=== PATIENT | male | born 1975 | race Caucasian/White ===

== ENCOUNTER 2017-07-05 21:39 | Emergency (ER) | payer OTHER ==
[~2017-07-05] VITALS: Ht 177.8 cm; Wt 81.7 kg
[~2017-07-05 21:39] MED LIST: ACET325 PO; CYCL10 PO; HYDR1TAB94 PO; IBUP800 PO; NAPR500EC PO; Norco 5-325 Ta1 EACH PO; OTC PAIN MEDS; PENVK500 PO; Percocet 5-3251 EACH PO; Robaxin-750750 MG PO; Ultram50 MG PO
[2017-07-05] MEDS ORDERED: CYCL10 PO (21:45)
[2017-07-05] MEDS ORDERED: LEVO750 PO ×2 (22:56→23:05)
[2017-07-05] MEDS ORDERED: Guaifenesin-Co118 ML PO ×2 (22:56→23:05)
[2018-04-04] MEDS ORDERED: Norco 5-325 Ta1 EACH PO (16:42)
[2018-04-04] MEDS ORDERED: Cleocin HCl300 MG PO (16:42)
== END 2017-07-05 23:17 | disposition home or self-care (01) ==
LOC: ER 21:39
DX: J18.9 Pneumonia, unspecified organism (principal); Z87.891 Personal history of nicotine dependence
CPT/HCPCS: 71046; 99283

== ENCOUNTER 2017-11-07 16:44 | Emergency (ER) | payer OTHER ==
[~2017-11-07] VITALS: Ht 177.8 cm; Wt 77.1 kg
[~2017-11-07 16:44] MED LIST changes: +Guaifenesin-Co118 ML PO; +LEVO750 PO
== END 2017-11-07 17:55 | disposition home or self-care (01) ==
LOC: ER 16:44
DX: T16.2XXA Foreign body in left ear, initial encounter (principal); Z79.899 Other long term (current) drug therapy; Z87.891 Personal history of nicotine dependence
CPT/HCPCS: 99282

== ENCOUNTER 2018-01-05 16:28 | Emergency (ER) | payer OTHER ==
[~2018-01-05] VITALS: Ht 177.8 cm; Wt 77.1 kg
[2018-01-05] MEDS ORDERED: ACET325 PO (17:00)
[2018-01-05] MEDS ORDERED: IBUP800 PO (17:01)
[2018-01-05] MEDS ORDERED: DICL75ER PO (17:37)
== END 2018-01-05 17:45 | disposition home or self-care (01) ==
LOC: ER 16:28
DX: G89.29 Other chronic pain (principal); M25.562 Pain in left knee; Z87.891 Personal history of nicotine dependence
CPT/HCPCS: 96372; 99282; J1885

== ENCOUNTER 2018-06-22 11:04 | Emergency (ER) | payer OTHER ==
[~2018-06-22] VITALS: Ht 177.8 cm; Wt 81.7 kg
[~2018-06-22 11:04] MED LIST changes: +Cleocin HCl300 MG PO; +DICL75ER PO
[2018-06-22] MEDS ORDERED: Prednisone20 MG PO (11:31)
[2018-06-22] MEDS ORDERED: Norco 5-325 Ta1 EACH PO (11:31)
[2018-06-22] MEDS ORDERED: Cleocin HCl300 MG PO (11:31)
== END 2018-06-22 11:40 | disposition home or self-care (01) ==
LOC: ER 11:04
DX: T81.40XA Infection following a procedure, unspecified, initial encounter (principal); K04.7 Periapical abscess without sinus
CPT/HCPCS: 99282

== ENCOUNTER 2018-12-14 18:36 | Emergency (ER) | payer OTHER ==
[~2018-12-14] VITALS: Ht 170.2 cm; Wt 77.1 kg
[~2018-12-14 18:36] MED LIST changes: +Prednisone20 MG PO
[2018-12-14] MEDS ORDERED: Neurontin 100100 MG (18:44)
[2018-12-14] MEDS ORDERED: CYCL10 PO (18:44)
[2018-12-14] MEDS ORDERED: METPRE4DP PO (19:00)
== END 2018-12-14 19:20 | disposition home or self-care (01) ==
LOC: ER 18:36
DX: M54.5 Low back pain (principal); Z79.52 Long term (current) use of systemic steroids; Z87.891 Personal history of nicotine dependence
CPT/HCPCS: 96372; 99283-25; J1885; J7512

== ENCOUNTER 2019-07-02 17:12 | Emergency (ER) | payer OTHER ==
[~2019-07-02] VITALS: Ht 177.8 cm; Wt 82.5 kg
[~2019-07-02 17:12] MED LIST changes: +METPRE4DP PO; +Neurontin 100100 MG
[2019-07-02 17:44] LABS: BASOPHILS ABSOLUTE AUTO 0.05 K/mm3 (0.00-0.23); BASOPHILS PERCENT AUTO 1 % (0-2); EOSINOPHILS ABSOLUTE AUTO 0.11 K/mm3 (0.00-0.68); EOSINOPHILS PERCENT AUTO 2 % (0-6); Hematocrit 42.2 % (37.0-53.0); Hemoglobin 13.4 g/dL (13.5-17.5); IMMATURE GRAN ABSOLUTE AUTO 0.02 K/mm3 (0.00-0.10); IMMATURE GRAN PERCENT AUTO 0 % (0-1); LYMPHOCYTES ABSOLUTE AUTO 1.89 K/mm3 (0.84-5.20); LYMPHOCYTES PERCENT AUTO 28 % (21-46); MONOCYTES ABSOLUTE AUTO 0.37 K/mm3 (0.16-1.47); MONOCYTES PERCENT AUTO 6 % (4-13); Mean Corpuscular HGB 25.1 pg (26.0-34.0); Mean Corpuscular HGB Conc 31.8 g/dL (31.5-36.5); Mean Corpuscular Volume 79 fL (80-100); Mean Platelet Volume 10.2 fL (9.1-12.4); NEUTROPHILS ABSOLUTE AUTO 4.33 K/mm3 (1.96-9.15); NEUTROPHILS PERCENT AUTO 64 % (41-73); Platelet Count 211 K/mm3 (150-400); RDW Coefficient Variation 14.6 % (11.7-14.2); RDW Standard Deviation 41.8 fL (35.1-46.3); Red Blood Cell Count 5.34 M/mm3 (4.30-5.90); White Blood Cell Count 6.77 K/mm3 (4.00-11.30)
[2019-07-02 18:01] LABS: Albumin, Blood 3.8 g/dL (3.4-5.0); Anion Gap 3 mmol/L (6-16); Blood Urea Nitrogen 13 mg/dL (8-24); CO2, Blood 28 mmol/L (21-32); Calcium, Blood 8.9 mg/dL (8.5-10.1); Chloride, Blood 107 mmol/L (98-108); Glucose, Blood 98 mg/dL (70-99); Potassium, Blood 3.8 mmol/L (3.5-5.5); Sodium, Blood 138 mmol/L (136-145)
[2019-07-02 18:06] LABS: Alanine Aminotransfer (ALT/SGP 31 U/L (12-78); Albumin/Globulin Ratio 1.1 (0.8-1.8); Alk Phos 94 U/L (50-136); Aspartate Aminotrans (AST/SGOT 18 U/L (12-37); Bilirubin, Total 0.4 mg/dL (0.1-1.0); Bun/Creatinine Ratio 17.9 (12.0-20.0); Creatinine, Blood 0.73 mg/dL (0.60-1.20); Globulin, Blood 3.5 g/dL (2.2-4.0); Glomerular Filtration Rate >60 (60-); Total Protein, Blood 7.3 g/dL (6.4-8.2)
== END 2019-07-02 19:30 | disposition left against medical advice (07) ==
LOC: ER 17:12
PROVIDERS: Physician Assistant
DX: Z53.21 Procedure and treatment not carried out due to patient leaving prior to being seen by health care provider (principal)
CPT/HCPCS: 36415; 80053; 85025; 99283

== ENCOUNTER 2020-08-27 17:45 | Emergency (ER) | payer OTHER ==
[~2020-08-27] VITALS: Ht 177.8 cm; Wt 81.7 kg
== END 2020-08-28 00:21 | disposition home or self-care (01) ==
LOC: ER 17:45
DX: M54.2 Cervicalgia (principal); Z79.899 Other long term (current) drug therapy
CPT/HCPCS: 96372; 99283-25; A9270; J1885